=== PATIENT | male | born 1985 | race Caucasian/White ===

== ENCOUNTER 2017-08-11 13:01 | Emergency (ER) | payer SELFPAY ==
[2017-08-11] MEDS ORDERED: Ketorolac Tromethamine 60 MG/2 ML VIAL ONE (14:17)
== END 2017-08-11 15:06 | disposition home or self-care (01) ==
LOC: ERS 13:01
DX: H66.93 Otitis media, unspecified, bilateral (principal); J02.9 Acute pharyngitis, unspecified
CPT/HCPCS: 87081; 87430; 96372; J1885